=== PATIENT | female | born 1950 | race Caucasian/White ===

== ENCOUNTER 2024-06-21 13:06 | Emergency (ER) | payer MEDICARE, BC, SELFPAY ==
[2024-06-21 13:08] VITALS: BP 172/89
[2024-06-21 13:31] LABS: % Basophils 0.5 % (0-2); % Immature Granulocytes 0.5 % (0-0.5); % Lymphocytes 16.5 % (20.5-51.1); % Monocytes 7.5 % (1.7-9.3); Absolute Basophils 0.1 10^3/uL (0-0.2); Absolute Eosinophils 0.3 10^3/uL (0-0.7); Absolute Immature Granulocytes 0.1 10^3/uL (0-0.05); Absolute Lymphocytes 2.8 10^3/uL (1.2-3.4); Absolute Monocytes 1.3 10^3/uL (0.1-0.6); Absolute Neutrophils 12.3 10^3/uL (1.4-6.5); Hematocrit 39.9 % (37.0-47.0); Hemoglobin 13.4 g/dL (12.0-16.0); Mean Corp Hgb Conc. 33.6 g/dL (33.0-37.0); Mean Corpuscular Hgb 29.8 pg (27.0-31.0); Mean Corpuscular Volume 88.7 fL (81.0-99.0); Mean Platelet Volume 10.8 fL (7.4-10.4); Nucleated Red Blood Cells % 0 %; Platelet Count 248 10^3/uL (130-400); Red Cell Dist. Width 13.2 % (11.5-14.5); White Blood Cell Count 16.9 10^3/uL (4.8-10.8)
[2024-06-21 13:48] LABS: ALT (SGPT) 16 U/L (0-35); AST (SGOT) 17 U/L (14-36); Albumin 4.3 g/dl (3.5-5.0); Alkaline Phosphatase 107 U/L (38-126); Blood Urea Nitrogen 18 mg/dl (7-17); Calcium 9.5 mg/dl (8.4-10.2); Carbon Dioxide 29 mmol/L (22-30); Chloride 101 mmol/L (98-107); Glucose 109 mg/dl (70-99); Potassium 5.3 mmol/L (3.5-5.1); Sodium 138 mmol/L (135-145); Total Bilirubin 0.6 mg/dl (0.2-1.3); Total Protein 7.4 g/dl (6.3-8.2); eGFR > 60.00
[2024-06-21 13:56] LABS: COVID-19 Antigen Negative (Negative)
--- NOTE | 2024-06-21 15:42 | ED.GENMED ---
History of Present Illness
General
Chief Complaint: Cardiac Symptoms
Source: patient and spouse
Time Seen by Provider: 06/21/24 15:23
History of Present Illness
History of Present Illness:
This patient is a 74-year-old female presents emergency department with a 4-day history of a 'head cold'. She describes sore throat, earache, headache, and a cough productive of mucus. She is most concerned with the sore throat that she has
although she is still able to tolerate p.o. She denies palpitations, chest pain, dyspnea, nausea, vomiting, swelling, abdominal pain, back pain, or other complaints. She went to her primary today regarding her URI symptoms, and was referred to the
emergency because the physician heard a 'irregular heart', and told her that it could be serious. An ECG was not performed in the office. Here, patient continues to deny cardiac related symptoms. She has been taking DayQuil, NyQuil, and Flonase,
otherwise no new medications from her usual.
Past History
Past History
ED Past Medical History: HTN and Hypercholesterolemia; Negative Asthma or CAD
ED Past Surgical History: Gynecological (partial hysterectomy), Orthopedic (Rotator cuff repair right shoulder) and Urological (bladder repair with mesh. Is scheduled to have an embedded mesh removed from her bladder next month); Negative Cardiac
Social History
Tobacco: Non-smoker
Alcohol: Occasional
Drug: None
Personal:
Living: with family
Employment: Employed
Family History
Family History: Hypertension; Negative Early CAD
Phy Exam
Physical Exam
Physical Exam:
GENERAL: Alert , in no apparent distress
EYE: pupils equal and reactive, no photophobia
NECK: Supple, no significant adenopathy.
ENT: o/p clr, mmm, no trismus, no drool, voice clear. No exudate, uvula midline, no stridor..
CARDIAC: Regular rate and rhythm with occasional extra beat noted.
LUNGS: Clear breath sounds bilaterally, no acute respiratory distress, no wheezes/rales/rhonchi
ABDOMEN: Soft, without focal tenderness, no r/g, no cvat
NEUROLOGICAL: Alert and oriented, no focal neuro deficits
SKIN: Warm and dry, skin intact.
MUSCULOSKELETAL: No edema, well perfused.
PSYCH: Normal and appropriate interaction.
Course
Orders/Labs/Results
Orders:
Orders
06/21/24 13:07
Electrocardiogram (*1) Urgent
Reason for Study: Abnormal EKG
EKG- Treatment ONCE
06/21/24 13:23
COVID-19 Antigen Urgent
Source: Nasal Swab
Complete Blood Count/With Diff Urgent
Comprehensive Metabolic Panel Urgent
Influenza A+B Rapid Molecular Urgent
LOIS Source: Nasal Swab
Specimen Description:
06/21/24 15:41
CR Chest - 2 Views Urgent
Comment:
Reason For Exam: cough
06/21/24 17:00
Doxycycline [Vibramycin] 100 mg PO NOW STA
Abnormal Lab Results
06/21/24
13:23
WBC 16.9 H 10^3/uL
(4.8-10.8)
MPV 10.8 H fL
(7.4-10.4)
Abs Immat Gran (auto) 0.1 H 10^3/uL
(0-0.05)
Absolute Neuts (auto) 12.3 H 10^3/uL
(1.4-6.5)
Absolute Monos (auto) 1.3 H 10^3/uL
(0.1-0.6)
Lymphocytes % 16.5 L %
(20.5-51.1)
Potassium 5.3 H mmol/L
(3.5-5.1)
BUN 18 H mg/dl
(7-17)
Glucose 109 H mg/dl
(70-99)
06/21/24 13:23
06/21/24 13:23
Vital Signs
Initial and Last Documented VS:
Initial Vital Signs
Temp Pulse Resp BP Pulse Ox
98.1 F 75 18 172/89 99
06/21/24 13:08 06/21/24 13:08 06/21/24 13:08 06/21/24 13:08 06/21/24 13:08
Last Documented Vital Signs
Temp Pulse Resp BP Pulse Ox
98.1 F 88 19 170/89 99
06/21/24 13:08 06/21/24 15:55 06/21/24 15:55 06/21/24 15:55 06/21/24 13:08
Update Note
Update Note:
Patient presents to the Emergency Department with ___reported irregular heart rate and URI symptoms
Number and Complexity of Problems Addressed at the Encounter
� Chronic conditions affecting care:
� Acute Exacerbation and/or Progression of Chronic Illness:
� Differential Diagnosis includes: But not limited to pharyngitis, bronchitis, pneumonia, A-fib, a flutter, SVT, PACs, PVCs, etc. etc.
Amount and/or Complexity of Data to be Reviewed and Analyzed
� I performed an independent evaluation of and my interpretation is:
EKG: Read by me, normal rate, normal rhythm with occasional PACs, no acute ischemia
CT:
Xrays: Read by me, NAD
Laboratory Studies: Nonspecific leukocytosis which is unchanged from prior. Very minimal hyperkalemia in the context of normal kidney function
Other:
� Review of other/old records reveals: Reviewed patient's 'after visit summary' from her PCP today including her vital signs.
� Clinical information was obtained by an independent historian: who is bedside
� Prescriptions/Medications Considered but not given:
� Further testing considered but not performed:
Risk of Complications and/or Morbidity or Mortality of Patient Management
� Social determinants of health affecting care:
� Discussion with other providers (PCP, Hospitalists, Consultants, etc):
� Escalation of care including admission/observation vs risk of discharge considered: Patient remained stable here. She will be advised regarding her nonspecific lab abnormalities, and importance of follow-up. Given sustained
symptoms, Rx for doxycycline written. Discussed with patient portance of follow-up and reasons return to the ER.
ED Attending Note
-
Portions of this chart may have been created with voice recognition software.� Occasional wrong word or��sound alike� substitutions may have occurred due to the inherent limitations of voice recognition software.
Discharge Plan
Departure
Patient Disposition: Home (Routine Discharge)
Date of Disposition: 06/21/24
Time of Disposition: 17:02
Patient with high blood pressure during this ER visit?: Yes
Condition: Good
Discharge Problem:
URI (upper respiratory infection)
Instructions: Upper respiratory infection in adults - ED discharge instructions, BLOOD PRESSURE
Prescriptions:
New
doxycycline hyclate 100 mg capsule
100 mg PO BID Qty: 14 0RF
No Action
metoprolol succinate 100 MG tablet extended release 24 hr
100 mg PO DAILY
vitamin E (dl, acetate) 400 UNITS capsule
1,200 units PO DAILY
metoprolol succinate 25 MG tablet extended release 24 hr
25 mg PO DAILY
Referrals:
Arabella Singh MD [Family Provider] - Next open appointment
Activity Restrictions/Additional Instructions:
PLEASE SEE ATTACHED EKG WHICH YOU SHOULD BRING TO YOUR PROCESS VALIDATION ENGINEER UPON PROMPT FOLLOW-UP APPOINTMENT. YOU ALSO HAD SOME MILD LAB ABNORMALITIES THAT SHOULD BE REVIEWED AND ADDRESSED BY YOUR PRIMARY CARE DOCTOR PROMPTLY. IF YOU DEVELOP TROUBLE
BREATHING, CHEST PAIN, PALPITATIONS, DIZZINESS, OR OTHER WORRISOME SIGNS, PLEASE RETURN TO THE ER IMMEDIATELY
Interventions
Interventions:
*Risk Screen - Suicide Last Done: 06/21/24 13:08
*General Assessment Last Done: 06/21/24 13:08
*ED COVID-19 Vaccine History Last Done: 06/21/24 13:08
ED- Pulmonary Assessment Last Done: 06/21/24 16:03
ED- Cardiac Assessment Last Done: 06/21/24 16:03
Discharge Date and Time
Print Language: DANISH
[2024-06-21 15:55] VITALS: BP 170/89
[2024-06-21 15:58] VITALS: BMI 32.5
[2024-06-21 16:00] VITALS: BP 151/83
[2024-06-21] MEDS: VIBRAMYCIN 100 MG PO (17:38)
== END 2024-06-21 17:43 | disposition home or self-care (01) ==
LOC: EMR 13:06
PROVIDERS: Emergency Medicine; EMERGENCY PHYSICIAN Emergency Medicine; FAMILY PHYSICIAN Student in an Organized Health Care Education/Training Program
DX: J06.9 Acute upper respiratory infection, unspecified (principal); I10 Essential (primary) hypertension; E78.00 Pure hypercholesterolemia, unspecified; Z82.49 Family history of ischemic heart disease and other diseases of the circulatory system
CPT/HCPCS: 99283; 71046; 80053; 85025; 87502; 87811; 93005

== ENCOUNTER → 2024-09-14 07:04 | Outpatient (REF) | payer MEDICARE, BC, SELFPAY ==
[2024-09-14 07:59] LABS: Hematocrit 40.5 % (37.0-47.0); Hemoglobin 13.4 g/dL (12.0-16.0); Mean Corp Hgb Conc. 33.1 g/dL (33.0-37.0); Mean Corpuscular Volume 91.2 fL (81.0-99.0); Nucleated Red Blood Cells % 0 %; Platelet Count 199 10^3/uL (130-400); Red Cell Dist. Width 12.8 % (11.5-14.5)
[2024-09-14 08:22] LABS: Blood Urea Nitrogen 17 mg/dl (7-17); Calcium 9.5 mg/dl (8.4-10.2); Carbon Dioxide 28 mmol/L (22-30); Chloride 105 mmol/L (98-107); Glucose 110 mg/dl (70-99); Potassium 5.0 mmol/L (3.5-5.1); Sodium 139 mmol/L (135-145); eGFR > 60.00
== END ==
LOC: RCS 07:04
PROVIDERS: ATTENDING PHYSICIAN Orthopaedic Surgery; FAMILY PHYSICIAN Internal Medicine
DX: Z01.818 Encounter for other preprocedural examination (principal)
CPT/HCPCS: 36415; 80048; 85025; 93005